=== PATIENT | female | born 1990 ===

== ENCOUNTER → 2020-04-11 | Outpatient (REF) | payer OTHER | LOC: M LAB REF 12:38 | PROVIDERS: ATTEND Physician Assistant | DX: N76.0 Acute vaginitis (principal) ==

== ENCOUNTER → 2020-10-19 | Outpatient (REF) | payer OTHER | LOC: M WUC 20:01 | PROVIDERS: ATTEND Physician Assistant | DX: J02.9 Acute pharyngitis, unspecified (principal) ==

== ENCOUNTER 2020-11-22 06:22 | Inpatient (IN) | payer OTHER ==
[~2020-11-22] VITALS: Ht 152.4 cm; Wt 70.8 kg
[2020-11-22] MEDS ORDERED: STUACAP PO (06:52)
[2020-11-22] MEDS ORDERED: TUMS500C PO (06:53)
[2020-11-22] MEDS ORDERED: ACET-907 PO (06:53)
[2020-11-22] MEDS ORDERED: PROB250C PO (06:54)
[2020-11-22] MEDS ORDERED: VALT500T PO (06:54)
[2020-11-22] MEDS ORDERED: PENICILLIN G POTASSIUM IV 5 MU in D5W MINI-BAG PLUS 100 ML IV STA (07:17)
[2020-11-22] MEDS ORDERED: CARBOPROST TROMETHAMINE 250 MCG/ML AMP IM PRN (07:20)
[2020-11-22] MEDS ORDERED: NS 1,000 ML IV SCH (07:20)
[2020-11-22] MEDS ORDERED: METHYLERGONOVINE MALEATE 0.2 MG/ML VIAL (J2210) IM PRN (07:20)
[2020-11-22] MEDS ORDERED: LIDOCAINE 1% MDV 20ML VIAL INFIL PRN (07:20)
[2020-11-22] MEDS ORDERED: OXYTOCIN DRIP 30 UNITS in IV 1 EA IV PRN (07:20)
[2020-11-22] MEDS ORDERED: TRANEXAMIC ACID INJection 1,000 MG in NS 100 ML IV PRN (07:20)
--- NOTE | 2020-11-22 07:50 | HPEPDOC ---
Obstetrical History & Physical General Date of Admission Nov 22, 2020 at 06:50 History of Present Illness 30yo at 40w4d by LMP c/w 9wk US with YUE 8 Dec 01 presents to L&D with p ainful contraction. Pt has been having gradually worsening contractions all weekend and states it is now difficult to breath through them. States they are occurring every 4 min and reports loss of mucus plug. She otherwise denies LOF, VB or discharge. +GFM. 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 Desires TOLAC - Elevated 1hr, normal 3hr Past Medical History Past Obstetrical History : Past Obstetrical History: Multigravida (G1 2014 PLTCS 7#10 oz; G2 2019 SAB at 4wks) Complications: No TRAVELING STOREKEEPER History: No pertinent history Past Medical History Medical History denies Surgical History: section, [place] teeth Family History Significant Family History: No pertinent family hx Social History Marital Status: Family situation: Spouse/partner home * Smoker: non-smoker Alcohol: Denies Drugs: denies Imunizations Tdap status: current Allergies Coded Allergies: No Known Allergies (Unverified , 11/22/20) Medications Scheduled Calcium Carbonate (Tums) 200 Mg Tab.chew, 2 TAB PO Q4H for cough and congestion Saccharomyces Boulardii (Probiotic) 250 Mg Capsule, 250 MG PO BID Valacyclovir HCl (Valtrex) 500 Mg Tablet, 500 MG PO DAILY Miscellaneous Medications Acetaminophen (Tylenol) 325 Mg Tablet, 1,000 MG PO Pnv No.63/Iron,Carb/Folic/Dha (Apolinar One Capsule) 1 Each Capsule, 1 CAP PO Physical Examination Physical Examination GENERAL: Alert and oriented times three. BREAST: . ABDOMEN: Gravid and non-tender to touch. FETUS: Is vertex (VTX) by sterile vaginal examination (SVE), HEART RATE: Regular rate LUNGS: Normal work of breathing EXTREMITIES: No edema. No clonus. Vital Signs/I&O Vital Signs Date Time Temp Pulse Resp B/P (MAP) Pulse Ox O2 Delivery O2 Flow Rate FiO2 11/22/20 06:43 97.7 95 16 Room Air Laboratory Data 24H LABS Laboratory Tests 2 11/22/20 06:53: Serology Scanned Report Hepatitis B Testing Pertinent Laboratoy Data Blood Type: O+ RBC Antibody Screen: Negative HIV: Negative Hepatitis B: Negative Rapid Plasma Reagin: Nonreactive Rubella: Immune Varicella: Immune Chlamydia/Gonorrhea: Negative Group B Streptococcus: Positive Anatomy Ultrasound Normal Anatomy: Yes Vaginal Examination Dilation: 1cm Effacement: 80% Station: -2 Cervical Consistency: Soft Cervical Position: Middle Presentation: Cephalic presentation Assessment Heart Rate (FHR): 150 Variability: Moderate Accelerations: Positive Decelerations: None Tocometer Contractions: Yes Frequency: regular (q4 min) Assessment/Plan Assessment 30yo at 40w4d by LMP c/w 1TM , YUE Nov, desires TOLAC Plan Admit and orient. Real Estate Account Executive and consent. Diet: clears Group B Streptococcus (GBS) POS, PCN ordered Labs and intravenous (IV) per unit protocol. Counseled on Pitocin and augmentation of labor. Pt desires the least amount of interventions possible Lactated Ringers (LR): 125cc/hr Anticipate normal spontaneous delivery () C-S as appropriate. Labor and Delivery Counseling Patient and counseled on risks/benefits of operative deliver and section if indicated, to include infection, increased blood loss requiring transfusion and injury to surrounding structures/ fetus. Pt states she would accept blood products if indicated. All questions answered. MADHU NUNEZ M.D. Nov 22, 2020 07:50
[2020-11-22] MEDS ORDERED: **PENDING PCN ENTRY XX SCH (09:00)
[2020-11-22 09:46] VITALS: BP 119/84
[2020-11-22 10:02] LABS: HEMATOCRIT 41.4 % (36.0-47.0); HEMOGLOBIN 14.8 g/dl (12.0-15.5); MEAN CORPUSCULAR HEMOGLOBIN 33.7 pg (27.0-33.0); MEAN CORPUSCULAR HGB CONC 35.7 g/dl (32.0-36.5); MEAN CORPUSCULAR VOLUME 94.3 fl (80.0-96.0); PLATELET COUNT, AUTOMATED 145 10^3/uL (150-450); RED BLOOD COUNT 4.39 10^6/uL (4.00-5.40); WHITE BLOOD COUNT 9.6 10^3/uL (4.0-10.0)
[2020-11-22] MEDS ORDERED: BUTORPHANOL 2 MG/ML INJ (J0595) IV ONE ×2 (10:35→17:55)
[2020-11-22] MEDS ORDERED: PROMETHAZINE INJ 25 MG/ML VIAL (J2550) IV ONE ×2 (10:35→17:55)
[2020-11-22] MEDS ORDERED: PENICILLIN G POTASSIUM IV 2.5 MU in IV 1 EA IV SCH (11:20)
[2020-11-22 11:39] VITALS: BP 132/79
--- NOTE | 2020-11-22 11:57 | IPNPDOC ---
Obstetrical Progress Note Date of Service Nov 22, 2020 Subjective Pt c/o back pain and cramping, feeling tired Objective Vital Signs Date Time Temp Pulse Resp B/P (MAP) Pulse Ox O2 Delivery O2 Flow Rate FiO2 11/22/20 10:58 16 Room Air 11/22/20 09:46 95 119/84 (96) 11/22/20 06:43 97.7 Assessment Heart Rate (FHR): 145 Variability: Moderate Accelerations: Positive Decelerations: None Heart Rate Tracing: Category I Tocometer Contractions: Yes Frequency: regular (q5 min) Duration: greater than 60 seconds Strength: palpated as moderate, resting tone palp/soft Sterile Vaginal Examination Dilation: 1cm Effacement (%): 80% Station: -2 Cervical Consistency: Soft Cervical Position: Posterior Postion/Presentation: Cephalic presentation Assessment and Plan Age: 30 : 3 Term: 1 Pre-term: 0 Abortions: 1 Livin EGA at Admission: 40 (+4) Status: Reassuring Group B Streptococcus: Positive Anticipate: Vaginal Delivery Additional Comments Pt counseling on options for care, augmentation of labor reviewed. Pain medications discussed. Reviewed movement in labor, comfort measures, and questions answered about plan. Pt assisted to speak with a supervisor self service store as requested. LR @125ml/hr, 2mg stadol/25mg phenergan iv x1, continuous efm x2, monitor for change in or maternal status, cervical catheter placed and filled to 80/80, evaluate for change as indicated, consider pitocin augmentation as appropriate, initiate GBS prophylaxis with onset of active labor. SHERIF MCGRATH CNM Nov 22, 2020 11:56
[2020-11-22] MEDS: LR 1,000 ML IV SCH ×2 (12:26→14:57)
[2020-11-22 14:34] VITALS: BP 127/78
[2020-11-22 17:42] VITALS: BP 156/74
[2020-11-22 19:09] VITALS: BP 122/71
[2020-11-22] MEDS ORDERED: LR 1,000 ML IV SCH (23:45)
[2020-11-22] MEDS ORDERED: OXYTOCIN DRIP 30 UNITS in IV 1 EA IV SCH (23:45)
--- NOTE | 2020-11-22 23:51 | IPNPDOC ---
Text Note Date of Service The patient was seen on 11/22/20. NOTE Presented to room for assessment of progress. Jhoan reports significant co ntraction pain and desires an epidural. Chaperoned by RN Major balloon deflated and removed. Cervix: 5/80/-2. FHR cat I. Ctx Q4-10 minutes apart. Will notify anesthesia of Jhoan's desire for an epidural. When she is comfortable, will initiate pitocin as necessary. Jhoan still strongly desires to proceed with her attempt. She understands all risks and benefits of TOLAC vs RLTCS. All patient and questions answered. Micah VS,Omid, I+O VS, Omid, I+O Laboratory Tests 11/22/20 07:04 Vital Signs Date Time Temp Pulse Resp B/P (MAP) Pulse Ox O2 Delivery O2 Flow Rate FiO2 11/22/20 19:09 97.8 83 16 122/71 (88) 11/22/20 17:42 Room Air JAMSHID SHAVER DO Nov 22, 2020 23:51
[2020-11-23] VITALS (7 sets, daily range): BP systolic 115–133; BP diastolic 58–78
[2020-11-23] MEDS ORDERED: FENTANYL 2MCG/ML ROPIVACAINE 0.2% IN 0.9% NACL 100ML IVBAG As Ordered ONE (00:15)
[2020-11-23] MEDS ORDERED: ePHEDrine SULFATE 25 MG/5 ML(5MG/ML) SYRINGE IV PRN (01:50)
[2020-11-23] MEDS ORDERED: EPIDURAL COMMENT XX SCH (01:50)
[2020-11-23] MEDS ORDERED: NALOXONE INJ 0.4MG/1ML VIAL (J2310 PER 1MG) IV PRN ×3 (01:50→07:08)
[2020-11-23] MEDS ORDERED: diphenhydrAMINE 50MG/ML VIAL (J1200) IV PRN (01:50)
[2020-11-23] MEDS ORDERED: ONDANSETRON 4MG/2ML VIAL IV PRN ×3 (01:50→08:15)
[2020-11-23] MEDS ORDERED: FENTANYL/ROPIVACAINE/NACL BAG 100 ML EPIDURAL SCH (01:50)
[2020-11-23] MEDS ORDERED: LACTATED RINGER'S 1000 ML IV PRN (01:50)
[2020-11-23] MEDS ORDERED: REFRIGERATOR IV KEYS XX PRN (01:50)
[2020-11-23] MEDS ORDERED: EPIDURAL/PCA KEYS XX PRN (01:50)
[2020-11-23] MEDS ORDERED: PENICILLIN G POTASSIUM IV 5 MU in D5W MINI-BAG PLUS 100 ML IV STA (02:00)
--- NOTE | 2020-11-23 04:24 | IPNPDOC ---
Text Note Date of Service The patient was seen on 11/23/20. NOTE Called to room with report of late decelerations, despite pitocin being off. I went to assess Jhoan. In the room she was comfortable with her epidural and laying in bed. FHR Cat II, with late decelerations. Cervix: 5/80/-2. head ballotable. Positional changes, maternal O2, and IV fluid bolus initiated. I discussed with Jhoan if she continues to have late decelerations despite no pitocin then it would no longer be safe to labor. She requested everything possible be tried in order to have a vaginal delivery. Will continue to monitor closely. All pat ient questions answered. Micah VS,Omid, I+O VS, Omid, I+O Laboratory Tests 11/22/20 07:04 Vital Signs Date Time Temp Pulse Resp B/P (MAP) Pulse Ox O2 Delivery O2 Flow Rate FiO2 11/22/20 19:09 97.8 83 16 122/71 (88) 11/22/20 17:42 Room Air I&O- Last 24 Hours up to 6 AM 11/23/20 06:00 Intake Total 500 ml Output Total 1250 ml Balance -750 ml JAMSHID SHAVER DO Nov 23, 2020 04:24
[2020-11-23] MEDS ORDERED: OXYTOCIN 30 UNITS IN 0.9% NaCl 500ML IV BAG (J2590) As Ordered ONE (05:54)
[2020-11-23] MEDS ORDERED: LIDOCAINE 2% W/EPINEPHRINE 20ML VIAL **PRES FREE As Ordered ONE (05:56)
[2020-11-23] MEDS ORDERED: ceFAZolin SOD 2 GM in IV 1 EA IV ONE (06:00)
[2020-11-23] MEDS ORDERED: BICITRA 30ML SOLN UDC PO ONE (06:00)
[2020-11-23] MEDS ORDERED: PENICILLIN G POTASSIUM IV 2.5 MU in IV 1 EA IV SCH (06:00)
[2020-11-23] MEDS ORDERED: AZITHROMYCIN INJ 500 MG, VIAL MATE ADAPTER 1 EACH in NS 250 ML IV ONE (06:00)
--- NOTE | 2020-11-23 06:03 | IPNPDOC ---
Text Note Date of Service The patient was seen on 11/23/20. NOTE Jhoan called out of her room and requested a c section. I entered the room to speak with her. She reports she doesn't want to labor any longer. FHR is Cat II, but with +accels and overall reassuring. We discussed all risks of c sections to include, but not limited to, bleeding requiring blood transfusion, risk of infection, risk of injury to bowel, bladder, or other structures which could require additional surgery, risk of injury to baby, risk of needing a hysterectomy as a lifesaving measure and even risk of and/or maternal . She verbalized understanding and elected to proceed. She adamantly declined laboring any longer. Ancef and Azithromycin for infection prophylaxis. Anesthesia notified. Will proceed when team assembled. All patient questions answered. Micah VS,Omid, I+O VS, Omid, I+O Laboratory Tests 11/22/20 07:04 Vital Signs Date Time Temp Pulse Resp B/P (MAP) Pulse Ox O2 Delivery O2 Flow Rate FiO2 11/22/20 19:09 97.8 83 16 122/71 (88) 11/22/20 17:42 Room Air I&O- Last 24 Hours up to 6 AM 11/23/20 06:00 Intake Total 500 ml Output Total 1250 ml Balance -750 ml JAMSHID SHAVER DO Nov 23, 2020 06:03
[2020-11-23] MEDS ORDERED: PHENYLephrine 500MCG 5ML (100MCG/ML) SYRINGE As Ordered ONE (06:48)
[2020-11-23] MEDS ORDERED: MORPHINE PRES-FREE INJ 10 MG/10 ML VIAL (J2274) As Ordered ONE (06:49)
[2020-11-23] MEDS ORDERED: MEPERIDINE 50 MG/ML 1ML VIAL (J2175) As Ordered ONE (07:08)
[2020-11-23] MEDS ORDERED: METOCLOPRAMIDE INJ 10MG/2ML VIAL (J2765 PER 1) IV PRN (07:08)
[2020-11-23] MEDS ORDERED: NALBUPHINE HCL 10 MG/ML AMP (J2300) IV PRN ×2 (07:08→08:15)
[2020-11-23] MEDS ORDERED: SIMETHICONE 80MG CHEW TAB PO PRN (07:30)
[2020-11-23] MEDS ORDERED: ACETAMINOPHEN TAB 650MG DOSE (2X325MG) PO PRN (07:30)
[2020-11-23] MEDS ORDERED: MEASLES,MUMPS,RUBELLA VACCINE INJ (MMR-II) (90707) SC SCH (07:30)
[2020-11-23 07:39] LABS: CORD GAS ABE V -3.7; CORD GAS HCO3 V 22.5 MEQ/L; CORD GAS O2 SAT V 94.1 %; CORD GAS PH V 7.317 UNITS; CORD GAS PO2 V 62.4 mmHg; CORD GAS SBC V 21.3 MEQ/L; CORD GAS TCO2 V 23.9 MEQ/L
[2020-11-23] MEDS ORDERED: KETOROLAC 60MG 2ML VIAL As Ordered ONE (07:42)
[2020-11-23] MEDS ORDERED: oxyCODONE 5MG TAB PO PRN (08:15)
[2020-11-23] MEDS ORDERED: fentaNYL 100 MCG/2 ML INJECTION (J3010) IV PRN (08:15)
[2020-11-23] MEDS ORDERED: MEPERIDINE INJ 25 MG/ML VIAL (J2175) IV PRN (08:15)
[2020-11-23] MEDS ORDERED: LR 1,000 ML IV SCH (08:15)
[2020-11-23] MEDS: FERROUS SULFATE 325MG TAB PO SCH (09:00)
[2020-11-23] MEDS: PRENATAL VITAMINS CHEWABLE TABLET PO SCH (09:00)
--- NOTE | 2020-11-23 10:49 | RO ---
OPERATIVE NOTE DATE OF OPERATION: 11/23/2020 PREOPERATIVE DIAGNOSES: 1. Nonreassuring heart tones remote from delivery. 2. Maternal request for section. 3. Failed Trial of Labor after Section POSTOPERATIVE DIAGNOSIS: Same as above PROCEDURE: Repeat low transverse section. SURGEON: Soren Obrien D.O. FOUNDRY MELT SUPERVISOR: Angela Allen CNM, whose assistance with exposure, retraction, and visualization was essential for completion of the case. ANESTHESIA: Epidural. IV FLUIDS: 1400 mL lactated ringers (LR). URINE OUTPUT: 300 mL via Christian catheter. ESTIMATED BLOOD LOSS: 600 mL. ANTIBIOTICS: 2 grams Ancef and 500 mg of azithromycin before case start. COMPLICATIONS: None. OPERATIVE FINDINGS: Viable female infant found and delivered in cephalic direct OP presentation. weight was 3440 grams or 7 pounds 9 ounces. apgars were 9 and 9. Uterus scarred appearing at the lower uterine segment, but otherwise normal. Normal fallopian tubes and normal ovaries bilaterally. Normal appearing placenta. DESCRIPTION OF PROCEDURE: The risks, benefits, indications, and alternatives of the procedure were reviewed with the patient and informed consent was obtained. The patient was taken to the operating room where epidural anesthesia was found to be adequate. The patient was then prepped and draped in the usual sterile fashion in the dorsal supine position with a leftward tilt. A surgical time-out was then performed and the patient's identify and planned procedure were verified with the operative team. A Pfannenstiel skin incision was then made with a scalpel and carried through to the underlying layer of fascia. The fascia was incised in the midline. The incision was extended laterally with Avalos scissors. The superior aspect of the fascial incision was grasped with anamika clamps, elevated, and the underlying rectus muscles were dissected off bluntly and with Avalos scissors. Attention was then turned to the inferior aspect of the fascial incision, which was in turn grasped with anamika clamps, elevated, and the rectus muscles were dissected off with Avalos scissors. The rectus muscles were then at the midline. The peritoneum was identified and entered digitally. The peritoneal incision was then extended in a superolateral fashion with good visualization of the bladder. A Mobius self-retaining retractor was then inserted into the abdomen as a means for exposure. The vesicouterine peritoneum was then identified, nicked with thr scalpel, and a bladder flap was created digitally. Next, the lower uterine segment was incised in a transverse fashion with the scalpel. The uterine incision was then extended manually. Clear fluid was noted upon entry into the uterus. The baby was found in cephalic direct OP presentation. The baby was delivered without difficulty through the hysterotomy site. The cord was then doubly clamped and cut after delayed cord clamping. The infant was then handed off to the awaiting pediatricians. Cord gases were drawn. The placenta was then removed manually with gentle traction on the cord. The uterus was then cleared of all clots and debris. The uterine incision was then closed with 0-Monocryl suture in a running locked fashion. A second layer of 0-Monocryl was then used to imbricate the hysterotomy in a vertical fashion. Inspection revealed excellent hemostasis. The pericolic gutters were then inspected and cleared of all clots and debris. The uterine incision was again inspected and was found to be completely hemostatic. The Mobius self-retraining retractor was then removed from the patient's abdomen. The peritoneum was then closed with 3-0 Vicryl suture in a running fashion. The rectus muscles were then loosely reapproximated using interrupted sutures of 3-0 Vicryl. The fascia was then closed with 0-Vicryl suture in a running fashion. The subcutaneous fat was closed with 3-0 Vicryl suture in a continuous fashion. The skin was closed with 4-0 Monocryl suture in a subcuticular fashion. Steri-Strips were then applied to the incision. The incision was then covered with an Optifoam dressing. At the completion of the case a bimanual exam was performed, which revealed good uterine tone and minimal vaginal bleeding. The patient tolerated the procedure well. All counts were correct x2. The patient was taken to the PACU in stable condition. TAINA
[2020-11-23] MEDS: diphenhydrAMINE 50MG/ML VIAL (J1200) IV PRN (11:05)
[2020-11-23] MEDS: KETOROLAC 30 MG/ML 1ML VIAL IV SCH ×2 (14:17→19:56)
[2020-11-23] MEDS: oxyCODONE 5MG TAB PO PRN (15:58)
[2020-11-23] MEDS: DOCUSATE SODIUM 100MG CAPSULE PO PRN (19:57)
[2020-11-24 02:13] VITALS: BP 108/64
[2020-11-24] MEDS: KETOROLAC 30 MG/ML 1ML VIAL IV SCH (02:46)
[2020-11-24] MEDS: diphenhydrAMINE 50MG/ML VIAL (J1200) IV PRN (02:47)
[2020-11-24 06:12] VITALS: BP 117/66
--- NOTE | 2020-11-24 06:20 | IPNPDOC ---
Progress Note Date of Service: Nov 24, 2020 Day#: 1 Progress Note SUBJECT: Ms. Kent is a 30yo PPD1 after a repeat for NRFHT during TOLAC. EBL 600cc, 9/9, 3440g. She has been ambulating, voiding spontaneously without issue and tolerating regular diet. Breast feeding without issue. Reports lochia is like a normal period. Patient is ambulating well. Reports some cramping with . Denies any pain. Voiding and passing flatus without difficulty. 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 On valtrex - Hx of low transverse in 2014 for arrest of dilation. Desires TOLAC - Elevated 1hr, normal 3hr OBJECTIVE: VITAL SIGNS: Within normal limits, afebrile. Alert and oriented times three. No increased WOB Heart rate: non-tachycardic Abdomen: Fundus firm at U-2. Soft, NTTP. Pfannensteil incision is covered with optifoam with minimal strike through. Abdomen is appropriately tender. Minimal lochia per patient ASSESSMENT: Ms. Kent is a 30yo PPD1 after a repeat for NRFHT during TOLAC. EBL 600cc, 9/9, 3440g. Vitals within normal limits, afebrile, hemodynamically stable with no evidence of infection. PLAN: 1. Discharge to home likely tomorrow. 2. Tylenol and Motrin for pain. 3. Encourage breast feeding and ambulation. 5. Routine PP visit in 2 and 6 weeks in clinic. 6. Discussed return precautions at length and activity limitations (lifting and pelvic rest) VS, I&O, 24H, [place] Vital Signs/I&O Vital Signs Date Time Temp Pulse Resp B/P (MAP) Pulse Ox O2 Delivery O2 Flow Rate FiO2 11/24/20 06:12 96.8 90 18 117/66 (83) 11/24/20 02:13 97 Room Air I&O- Last 24 Hours up to 6 AM 11/24/20 06:00 Intake Total 2300 ml Output Total 1625 ml Balance 675 ml Laboratory Data 24H LABS Laboratory Tests 2 11/23/20 07:30: Cord Venous Blood pH 7.317, Cord Venous Blood PCO2 45.0, Cord Venous Blood PO2 62.4, Cord Venous Blood HCO3 22.5, Cord Venous Blood Total CO2 23.9, Cord Venous Base Excess (Actual) -3.7, Cord Venous Base Excess (Standard) 21.3, Cord Venous Blood Oxygen Saturation 94.1 FLYNN ALANIS DO Nov 24, 2020 06:20
[2020-11-24 07:39] LABS: HEMATOCRIT 29.9 % (36.0-47.0); MEAN CORPUSCULAR HEMOGLOBIN 34.6 pg (27.0-33.0); MEAN CORPUSCULAR HGB CONC 35.5 g/dl (32.0-36.5); MEAN CORPUSCULAR VOLUME 97.7 fl (80.0-96.0); PLATELET COUNT, AUTOMATED 117 10^3/uL (150-450); RED BLOOD COUNT 3.06 10^6/uL (4.00-5.40); WHITE BLOOD COUNT 9.3 10^3/uL (4.0-10.0)
[2020-11-24 07:44] LABS: HEMOGLOBIN 10.6 g/dl (12.0-15.5)
[2020-11-24] MEDS: FERROUS SULFATE 325MG TAB PO SCH (07:54)
[2020-11-24] MEDS: PRENATAL VITAMINS CHEWABLE TABLET PO SCH (07:54)
[2020-11-24] MEDS: oxyCODONE 5MG TAB PO PRN ×2 (07:54→15:03)
[2020-11-24 10:00] VITALS: BP 102/63
[2020-11-24] MEDS: IBUPROFEN 800 MG TAB PO SCH ×2 (10:20→18:02)
[2020-11-24 14:00] VITALS: BP 117/65
[2020-11-24 18:00] VITALS: BP 110/62
[2020-11-24] MEDS: DOCUSATE SODIUM 100MG CAPSULE PO PRN (21:56)
[2020-11-24 22:00] VITALS: BP 123/82
[2020-11-24] MEDS ORDERED: MIRALAX *UNIT DOSE* 17GM PACKET PO PRN (22:25)
[2020-11-25] MEDS: oxyCODONE 5MG TAB PO PRN (00:28)
[2020-11-25 02:00] VITALS: BP 120/77
[2020-11-25] MEDS: IBUPROFEN 800 MG TAB PO SCH ×2 (03:12→09:02)
[2020-11-25 06:00] VITALS: BP 128/73
[2020-11-25] MEDS ORDERED: OXYC-517 PO (07:25)
[2020-11-25] MEDS ORDERED: DOK1CAP7 PO (07:25)
[2020-11-25] MEDS: FERROUS SULFATE 325MG TAB PO SCH (08:00)
[2020-11-25] MEDS: PRENATAL VITAMINS CHEWABLE TABLET PO SCH (08:00)
--- NOTE | 2020-11-25 11:54 | DSES ---
DISCHARGE SUMMARY DATE OF ADMISSION: 11/22/2020 DATE OF DISCHARGE: 11/25/2020 HISTORY: This lady is a 30-year-old 3 now para 2, was admitted with contractions at 40 and 4 weeks gestation. She requested a TOLAC, however at the last moment after actively in labor requested to have a repeat section, did not want to continue with labor. She had a Category 2 strip with reactivity and accelerations were noted. She had a repeat section under epidural anesthesia, livebirth female , 7 pounds, 9 ounces, 3440 grams, Apgars of 9 and 9 at 1 and 5 minutes respectively. Venous pH was 7.31, base excess -3.7. On her second day, we discussed phlebitis, cystitis, mastitis, endometritis and cellulitis, diet, exercise, pain management, perineal, breast, and wound care. Her risk factors is she had a history of HSV, was on prophylactic Zovirax, had a previous section and was GBS positive. The rest of the examination was unremarkable. She is normocephalic, atraumatic. Neck: Full range of motion. Pupils equal and reactive to light. Distal pulses are symmetric. No evidence of deep venous thrombosis (DVT), pulmonary emboli (PE), or superficial phlebitis. Chest is clear bilaterally to bases. No wheezes or rhonchi. No CVA tenderness. Abdomen soft. Four-quadrant bowel sounds are noted. Incision is clean and dry. No rashes, lesions or pruritus, no arthralgias, no myalgias, no complaint of joint pain. No complaint of cough, wheeze, shortness of breath or dyspnea on exertion. No nausea, vomiting, no urgency or frequency. SUMMARY: We have a term gestation delivered by repeat section, livebirth female infant. Admitting hemoglobin 14.8, hematocrit 41.4, platelets 145,000. Discharge hemoglobin 10.6, hematocrit 29.9, and platelets are 117. Her vital signs on discharge: Blood pressure 128/73, respirations are 16, pulse 95, temperature is 97.6. In summary, we have a term gestation, delivered a livebirth female infant. PLAN: She is to parts picker her medications at [place], additional medications will be ordered by her physician. She has a two week incision check, a six week check. Discussed at that time regarding control will be made. A 20 minute discussion, all questions were answered. Patient was discharged improved. cc: [facility]
== END 2020-11-25 12:41 | disposition home or self-care (01) | DRG 773 ==
LOC: M LDO 06:22 → M LDI 06:50 → M OBS 11-23 09:11
PROVIDERS: ADMIT Obstetrics & Gynecology; ATTEND Obstetrics & Gynecology
PROC: 10D00Z1 Extraction of Products of Conception, Low, Open Approach (ICD-10-PCS; principal; 2020-11-23 06:30)
DX: O48.0 Post-term pregnancy (principal); O99.824 Streptococcus B carrier state complicating childbirth; Z3A.40 40 weeks gestation of pregnancy; O34.211 Maternal care for low transverse scar from previous cesarean delivery; O76 Abnormality in fetal heart rate and rhythm complicating labor and delivery; O66.41 Failed attempted vaginal birth after previous cesarean delivery; Z37.0 Single live birth

== ENCOUNTER 2021-03-20 22:48 | Emergency (ER) | payer OTHER ==
[~2021-03-20] VITALS: Ht 152.4 cm; Wt 55.1 kg
[~2021-03-20 22:48] MED LIST: ACET-907 PO; DOK1CAP4 PO; OXYC-517 PO; PROB250C PO; STUACAP PO; TUMS500C PO; VALT500T PO
[2021-03-20 22:50] VITALS: BP 107/70
[2021-03-20] MEDS ORDERED: ACET-839 PO (22:56)
[2021-03-20] MEDS ORDERED: POST NATAL VITAMIN PO (22:56)
== END 2021-03-21 05:10 | disposition left against medical advice (07) ==
LOC: M ED 22:48
DX: Z53.21 Procedure and treatment not carried out due to patient leaving prior to being seen by health care provider (principal)

== ENCOUNTER → 2021-04-17 | Outpatient (REF) | payer OTHER ==
[~2021-04-17] MED LIST changes: +ACET-839 PO; +POST NATAL VITAMIN PO
== END ==
LOC: M WUC 18:20
PROVIDERS: ATTEND Physician Assistant
DX: B37.3 Candidiasis of vulva and vagina (principal)

== ENCOUNTER → 2021-05-13 | Outpatient (REF) | payer OTHER ==
[2021-05-13 14:50] LABS: APPEARANCE, URINE HAZY (CLEAR); BACTERIA, URINE AUTO NEGATIVE (NEGATIVE); BILIRUBIN, URINE AUTO NEGATIVE (NEGATIVE); BLOOD, URINE BLOOD NEGATIVE (NEGATIVE); COLOR, URINE YELLOW (YELLOW); GLUCOSE, URINE (UA) AUTO NEGATIVE (NEGATIVE); KETONE, URINE AUTO NEGATIVE (NEGATIVE); LEUKOCYTE ESTERASE, URINE AUTO NEGATIVE (NEGATIVE); MUCUS, URINE SMALL (NEGATIVE); NITRITE, URINE AUTO NEGATIVE (NEGATIVE); PROTEIN, URINE AUTO NEGATIVE (NEGATIVE); RBC, URINE AUTO 0 /HPF (0-3); SPECIFIC GRAVITY URINE AUTO 1.019 (1.002-1.035); SQUAMOUS EPITHELIAL CELL UR AU 4 /HPF (0-6); UROBILINOGEN, URINE AUTO 0.2 mg/dL (0.0-2.0); WBC, URINE AUTO 1 /HPF (0-3)
== END ==
LOC: M LAB REF 14:25
PROVIDERS: ATTEND Physician Assistant Medical
DX: N39.0 Urinary tract infection, site not specified (principal)